=== PATIENT | male | born 1945 | race Caucasian/White ===

== ENCOUNTER 2017-02-23 08:20 | Inpatient (IN) | payer OTHER ==
[~2017-02-23] VITALS: Ht 167.6 cm; Wt 81.6 kg
--- NOTE | 2017-02-23 08:32 | ED CARDIAC/CP/PALPITATIONS ---
History of Present Illness General Chief Complaint: General Adult Stated Complaint: RAPID HR Source: patient, family Exam Limitations: no limitations Vital Signs & Intake/Output Vital Signs & Intake/Output ED Intake and Output 02/25 0000 02/24 1200 Intake Total 1200 700 Output Total 600 800 Balance 600 -100 Intake, IV 800 600 Intake, Oral 400 100 Output, Urine 600 800 Allergies Coded Allergies: NO KNOWN ALLERGIES (04/23/12) Reconcile Medications Apixaban (Eliquis) 5 MG TABLET 1 TAB PO BID BLOOD THINNER (Reported) Diltiazem HCl (Diltiazem 24HR ER) 120 MG CAP.ER.24H 1 CAP PO DAILY HEART ( Reported) Gabapentin 300 MG CAPSULE 1 CAP PO BID PAIN (Reported) Gabapentin 300 MG CAPSULE 2 CAP PO QPM PAIN (Reported) Glipizide (Glipizide ER) 10 MG TAB.ER.24 1 TAB PO DAILY DIABETES (Reported) Metoprolol Succinate 50 MG TAB.ER.24H 1 TAB PO DAILY HEART (Reported) Pioglitazone HCl 30 MG TABLET 1 TAB PO DAILY DIABETES (Reported) Pravastatin Sodium 80 MG TABLET 1 TAB PO DAILY CHOLESTEROL (Reported) Triage Nurses Notes Reviewed? yes Onset: Abrupt Duration: minute(s): (FEW) Timing: single episode today Associated Symptoms: MILD DIZZINESS PER PATIENT HPI: This is a 71-year-old male with history of A. fib diagnosed in December 2016 on Cardizem and ELOQUIS who presents to us from our GI suite for chief complaint of being found in rapid A. fib. He was nothing by mouth for a colonoscopy and endoscopy screening this morning by Dr. Cesar Lofton. He did not take any of his medications this morning. He stopped ELOQUIS on Sunday. Patient found to be tachycardic and was determined to be in A. fib by the GI suite. He was brought here for evaluation. Patient denies any chest pain shortness of breath. He did feel a little bit lightheaded and dizzy at home. He is status post colon cleanse for the colonoscopy this morning. Patient follows up with Dr. Minor Hargrove out of [place] family dinner service specialist. Patient with history of previous ablation for SVT in the past. Patient found to be sinus tachycardia on the monitor. Patient has history of hep C and has a relatively new diagnosis of liver CA which they are in the process of evaluating. Past History Travel History Traveled to [place] past 21 day No Medical History Any Pertinent Medical History? see below for history Neurological: NONE EENT: NONE Cardiovascular: AFIB, hypertension, hyperlipidemia, SVT Respiratory: obstructive sleep apnea Gastrointestinal: NONE Hepatic: hepatitis C Renal: benign prost hyperplasia Musculoskeletal: osteoarthritis Psychiatric: NONE Endocrine: diabetes Blood Disorders: HEMOCHROMATOSIS Cancer(s): liver cancer Surgical History Surgical History: non-contributory Psychosocial History What is your primary language Citizen Of [place] Tobacco Use: Never used ETOH Use: denies use Illicit Drug Use: denies illicit drug use Family History Hx Contributory? No Review of Systems Review of Systems Constitutional: Denies: chills, fever, malaise, weakness. EENTM: Reports: no symptoms. Respiratory: Denies: cough, short of breath, sputum production. Cardiovascular: Denies: chest pain, edema, palpitations, peripheral edema, syncope. GI: Reports: no symptoms. Genitourinary: Reports: no symptoms. Musculoskeletal: Reports: no symptoms. Skin: Reports: no symptoms. Neurological/Psychological: Reports: no symptoms. Hematologic/Endocrine: Denies: bruising, bleeding. Immunologic/Allergic: Denies: splenectomy. All Other Systems: Reviewed and Negative Physical Exam Physical Exam General Appearance: well developed/nourished, alert, awake Head: atraumatic, normal appearance Eyes: Bilateral: normal appearance, PERRL, EOMI. Ears, Nose, Throat: normal pharynx, hearing grossly normal Neck: normal inspection, supple, full range of motion Respiratory: normal breath sounds, chest non-tender, no respiratory distress Cardiovascular: tachycardia Peripheral Pulses: 2+ radial (R), 2+ radial (L) Gastrointestinal: normal bowel sounds, soft, non-tender Back: normal inspection Extremities: normal inspection, normal capillary refill, normal range of motion, no edema Neurologic/Psych: no motor/sensory deficits, awake, alert, oriented x 3 Skin: intact, normal color, warm/dry Core Measures ACS in differential dx? No Severe Sepsis Present: No Septic Shock Present: No Progress Differential Diagnosis: atrial fibrillation, musculoskeletal pain, myocarditis, pericarditis, pulmonary embolism, unstable angina, V-fib/V-Tach, DEHYDRATION, SINUS TACHYCARDIA, Plan of Care: Orders Procedure Date/time Status Consistent Carbohydrate 1 02/23 L Active ED Holding Orders 02/24 940 Active Admit to inpatient 02/24 940 Active Vital Signs 02/24 940 Active Code Status 02/24 940 Active EKG 02/24 856 Active TROPONIN LEVEL 02/24 832 Complete COMPREHENSIVE METABOLIC PANEL 02/24 832 Complete CBC WITHOUT DIFFERENTIAL 02/24 832 Complete EKG 02/23 823 Active Current Medications Sig/Mariano Start time Last Medication Dose Stop Time Status Admin Calcium Gluconate 1 GM ONCE ONE 02/23 930 AC (Calcium Gluconate) 02/23 1029 Sodium Chloride 100 ML (Normal Saline 0.9%) Sodium Chloride 500 ML BOLUS ONE 02/23 845 AC 02/23 (Normal Saline 0.9%) 02/23 0944 0839 Laboratory Tests 02/23/17 0838: Anion Gap 17 H, Estimated GFR 24 L, BUN/Creatinine Ratio 17.7, Glucose 242 H, Calcium 9.7, Total Bilirubin 0.8, AST 250 H, ALT 44, Alkaline Phosphatase 286 H, Troponin I 0.03, Total Protein 7.3, Albumin 4.0, Globulin 3.3, Albumin/ Globulin Ratio 1.2, CBC w Diff NO MAN DIFF REQ, RBC 4.20 L, MCV 89.8, MCH 29.6, RDW 14.5, MPV 6.8 L, Gran % 86.9 H, Lymphocytes % 6.4 L, Monocytes % 6.5, Eosinophils % 0, Basophils % 0.2, Absolute Granulocytes 12.1 H, Absolute Lymphocytes 0.9 L, Absolute Monocytes 0.9 H, Absolute Eosinophils 0, Absolute Basophils 0, PUBS MCHC 33.0 EKG, TELE MONITOR. PATIETN IS TACHYCARDIC, SINUS. IV LOPRESSOR, IV FLUIDS ORDERED. HEART RATE IN 110'S. IV CARDIZEM ORDERED, REPEAT EKG ORDERED, NSR IN 80'S. D/W DR EVERETT (PARTNER OF MINOR [facility]) WHO FEELS PATIETN DOES NOT REQUIRE CARDIOLOGY INPUT. ADMITTED TO HOSPITALIST SERVICE ON TELE FOR HYPERKALEMIA. CALCIUM, INSULIN, GLUCOSE ORDERED. KAYEXELATE PER DISCRETION OF HOUSESTAFF. PATIENT HAS BEEN NPO AFTER GOLYTELY YESTERDAY. WILL REQUIRE CLOSE MONITORING WITH I/O, ELECTROLYTES. (LIZZETH POLK,JING) Initial ED EKG: SINUS TACHYCARDIA Prior EKG: changed (NSR @ 82 BPM) Rhythm Strip: sinus tachycardia Departure Departure Time of Disposition: 939 Disposition: STILL A PATIENT Condition: Stable Clinical Impression Primary Impression: Hyperkalemia Secondary Impressions: MALCOLM (acute kidney injury), Sinus tachycardia Referrals: MASON POLK,AMY Ramires (PCP/Family) Departure Forms: Customer Survey General Discharge Information Admission Note Spoke With: BRIGIDO BENITEZ MD Documentation of Exam: Documentation of any treatments & extenuating circumstances including Concerns Regarding Discharge (functional status, medication knowledge or non-compliance, living conditions, etc.) that warrant an admission rather than observation: [ TELE MONITOR, TREATMENT OF HYPERKALEMIA, MONITOR I/O, REPEAT ELECTROLYTES, POSSIBLE COLONOSCOPY/ENDOSCOPY WHEN STABLE] Critical Care Note Critical Care Note Critical Care Time: 30-74 min ED Attending Observation Initial Observation Note: I have seen and personally examined KALYAN NORIEGA SR on 02/23/17 at 0926. I agree with the current emergency department documentation. The disposition (admission or discharge) is uncertain at this time, he needs a period of observation for the following reason(s): The ED Nurse caring for this patient has been personally informed as to what the patient is being observed for.
--- NOTE | 2017-02-23 08:32 | NUR ---
71 YEAR OLD MALE TO ER FROM THE GI SUITE FOR QUESTION RAPID AFIB. PT WAS TO HAVE COLONOSCOPY AND ENDOSCOPY THIS AM AND WHEN HE WAS PLACED ON MONITOR PT WAS NOTED WITH FAST HEART RATE. EKG OBTAINED ON ARRIVAL TO ER AND NOTED WITH SINUS TACH HR 130'S. PT DENIES SOB, O2 SAT 97 % ON 2L VIA NC / DENIES CP. PT HAS HISTORY OF AFIB AND TAKES ELIQUIST. DR MOREAU AT BEDSIDE AND PT TO GET IV FLUIDS AND IV METOPROL PER ORDER .
--- NOTE | 2017-02-23 08:40 | NUR ---
PT MEDICATED WITH IV LOPRESSOR PER ORDER AT THIS TIME HR DOWN TO 115 AFTER LOPRESSOR. MD AT BEDSIDE. FLUIDS REMAIN INFUISNG PER ORDER AT THIS TIME.
--- NOTE | 2017-02-23 08:42 | NUR ---
LABS DRAWN AND SENT BY THIS MST (BLUE,SST,LAV,JENSEN)
[2017-02-23] MEDS ORDERED: DILTIAZEM 24HR120 MG PO (08:46)
[2017-02-23] MEDS ORDERED: ELIQUIS5 M1 PO (08:46)
[2017-02-23] MEDS ORDERED: GABAPENTIN300 M2 PO ×2 (08:46→08:47)
[2017-02-23] MEDS ORDERED: METOPROLOL SUCC50 M2 PO (08:47)
[2017-02-23] MEDS ORDERED: GLIPIZIDE ER10 M1 PO (08:47)
[2017-02-23] MEDS ORDERED: PIOGLITAZONE HC30 M1 PO (08:48)
[2017-02-23] MEDS ORDERED: PRAVASTATIN SOD80 M2 PO (08:48)
--- NOTE | 2017-02-23 08:48 | NUR ---
PT MEDICATED WITH 10MG IV CARDIZEM PER ORDER AT THIS TIME HP 113 AT THIS TIME. PT REMAINS ASYMPTOMATIC.
[2017-02-23 08:49] LABS: ABSOLUTE BASOPHIL COUNT 0 /CUMM (0.0-0.2); ABSOLUTE EOSINOPHIL COUNT 0 /CUMM (0.0-0.7); ABSOLUTE GRANULOCYTE CT 12.1 /CUMM (1.4-6.5); ABSOLUTE LYMPH COUNT 0.9 /CUMM (1.2-3.4); ABSOLUTE MONOCYTE COUNT 0.9 /CUMM (0.10-0.60); BASOPHIL % 0.2 % (0.0-2.0); EOSINOPHIL % 0 % (0-5); HEMATOCRIT 37.7 % (42-52); MEAN CORPUSCULAR HGB 29.6 PG (27.0-31.0); MEAN CORPUSCULAR VOLUME 89.8 FL (80.0-94.0); MEAN PLATELET VOLUME 6.8 FL (7.4-10.4); PLATELET COUNT 352 /CUMM (130-400); RBC DISTRIBUTION WIDTH 14.5 % (11.5-14.5); WHITE BLOOD CELL COUNT 13.9 /CUMM (4.8-10.8)
[2017-02-23 09:06] LABS: GRANULOCYTE % 86.9 % (42.2-75.2)
--- NOTE | 2017-02-23 09:14 | NUR ---
IVF'S NS 500 ML BOLUS COMPLETED, BAN MONTIEL AT BEDSIDE FOR REPEAT EKG. PT CONTINUES TO DENY CHEST PAIN OR PALPATIONS, HEART RATE 81 AT THIS TIME.
--- NOTE | 2017-02-23 09:16 | NUR ---
CRITICAL TEST RESULTS [id number] KALYAN NORIEGA SR 71 M TESTS AND RESULTS: POTASSIUM: 6.3 Results received and read back by: JUNAID SORENSEN Results received date and time: 02/23/17 0916 The following provider was notified of the results, and read the results back: DR MOREAU Notified date and time: 02/23/17 at 0916
--- NOTE | 2017-02-23 09:51 | NUR ---
PT REMAINS AWAKE AND ALERT, NSR ON MONITOR HR 82 AT THIS TIME. FS 212 AND PT MEDICATD WITH DEXTROSE 50 % 25 GM IV/NOVOLIN R 10 UNITS IV AND CALCIUM GLUCONATE 1 GM INFUSING VIA PUMP AT 110 ML HR FOR K+ OF 6.3. PT OFFERS NO COMPLAINTS AT THIS TIME. SPOUSE AT BEDSIDE
--- NOTE | 2017-02-23 10:07 | History & Physical ---
WICHO CUEVAS 02/23/17 1003: General Information and HPI MD Statement: I have seen and personally examined KALYAN NORIEGA Sayda SR and documented this H&P. The patient is a 71 year old M who presented with a patient stated chief complaint of palpitations Source of Information: patient, family Exam Limitations: no limitations History of Present Illness: Patient is a 71-year-old admitted with past medical history significant for paroxysmal A. fib (diagnosed in December 2016) on Cardizem and elliquis, history of SVT status post ablation, history of hypertension and hyperlipidemia ,recently diagnosed liver mass, history of chronic hepatitis C, history of gallstones, diabetes mellitus presented to the ED from GI suite for the evaluation of rapid heart rate. Patient was nothing by mouth in the morning for colonoscopy and endoscopy screening by Dr. Lo Lofton today. He did not take any of his medications in the morning. Elliquis was stopped on Sunday. In the GI suite patient was found to be tachycardic heart rate was in 130s, the staff was concerned about rapid A. fib and was sent to the ED for further assessment. In the ED , he was found to be in sinus tach .Denied any chest discomfort , shortness of breath or any palpitations. Denies any nausea vomiting sweating. Reported some right upper quadrant discomfort, that's been there for a long time (probably due to underlying gallstones). Denied any weight loss. Denied any urinary symptoms. In the ED initial EKG revealed sinus tachycardia. Lab work revealed hyperkalemia potassium of 6.3 with elevated BUN and creatinine(2.6/1.6). Patient has been having this chronic right upper quadrant pain for a couple of years now, recently had a abdominal ultrasound done that revealed gallbladder stones. Patient has a history of long-standing chronic hepatitis C, never had any treatmment, patient was recently diagnosed with a hepatoma, and he has been worked up at [facility] for possible intervention. Today he was scheduled for endoscopy and colonoscopy as a part of preop workup before the liver surgery. Allergies/Medications Allergies: Coded Allergies: NO KNOWN ALLERGIES (04/23/12) Home Med list Apixaban (Eliquis) 5 MG TABLET 1 TAB PO BID BLOOD THINNER (Reported) Diltiazem HCl (Diltiazem 24HR ER) 120 MG CAP.ER.24H 1 CAP PO DAILY HEART ( Reported) Gabapentin 300 MG CAPSULE 1 CAP PO BID PAIN (Reported) Gabapentin 300 MG CAPSULE 2 CAP PO QPM PAIN (Reported) Glipizide (Glipizide ER) 10 MG TAB.ER.24 1 TAB PO DAILY DIABETES (Reported) Metoprolol Succinate 50 MG TAB.ER.24H 1 TAB PO DAILY HEART (Reported) Pioglitazone HCl 30 MG TABLET 1 TAB PO DAILY DIABETES (Reported) Pravastatin Sodium 80 MG TABLET 1 TAB PO DAILY CHOLESTEROL (Reported) Past History Travel History Traveled to [place] past 21 day No Medical History Neurological: NONE EENT: NONE Cardiovascular: AFIB, hypertension, hyperlipidemia, SVT Respiratory: obstructive sleep apnea Gastrointestinal: NONE Hepatic: hepatitis C Renal: benign prost hyperplasia Musculoskeletal: osteoarthritis Psychiatric: NONE Endocrine: diabetes Blood Disorders: HEMOCHROMATOSIS Cancer(s): liver cancer Surgical History Surgical History: spinal fusion Past Family/Social History Family History Relations & Conditions if any SISTER (Uterine cancer). FATHER ([place]). Psychosocial History ETOH Use: denies use Illicit Drug Use: denies illicit drug use Review of Systems Review of Systems Constitutional: Denies: chills, diaphoresis, fever, malaise. EENTM: Denies: blurred vision, double vision, eye pain, eye tearing. Cardiovascular: Denies: chest pain, edema, orthopena. Respiratory: Denies: cough, hemoptysis, orthopnea. GI: Denies: abdominal pain, bloating, constipation. Genitourinary: Denies: discharge, dysuria, frequency. Musculoskeletal: Denies: back pain, gout, joint pain. Skin: Denies: cysts, change in skin color, change in hair/nails. Neurological/Psychological: Denies: ataxia, cognitive dysfunction, confusion, dementia. Hematologic/Endocrine: Denies: bruising, bleeding, polyuria. Exam & Diagnostic Data Last 24 Hrs of Vital Signs/I&O Vital Signs Date Time Temp Pulse Resp B/P B/P Pulse O2 O2 Flow FiO2 Mean Ox Delivery Rate 02/23 0956 97.8 82 18 110/65 98 Nasal 2.0L Cannula 02/24 848 98.6 113 18 124/68 02/24 0848 98.6 113 18 124/68 98 Room Air 02/24 0839 97.3 132 18 120/84 02/24 0833 97 Nasal 2.0L Cannula 07/07 0823 97.3 132 18 120/84 97 Room Air Intake & Output 02/23 1600 07 0800 07/ 0000 Intake Total 500 Output Total Balance 500 Intake, IV 500 Intake, Oral 0 Patient 180 lb Weight Physical Exam General Appearance Alert, Oriented X3, Cooperative Skin No Rashes Skin Temp/Moisture Exam: Cool/Dry HEENT Atraumatic, PERRLA Cardiovascular Regular Rate, Normal S1, Normal S2 Lungs Clear to Auscultation, Normal Air Movement Abdomen Normal Bowel Sounds, Soft, No Tenderness Neurological Normal Gait, Normal Speech Assessment/Plan Assessment: Patient is a 71-year-old admitted with past medical history significant for paroxysmal A. fib (diagnosed in December 2016) on Cardizem and elliquis, history of SVT status post ablation, history of hypertension and hyperlipidemia ,recently diagnosed liver mass, history of chronic hepatitis C, history of gallstones, diabetes mellitus presented to the ED from GI suite for the evaluation of rapid heart rate. Pertinent vitals on admission temperature 97.3, sinus tach tach(132) , respiratory rate 18, blood pressure 120/84 on room air. Pertinent labs on admission: Leukocytosis 13.9 with granulocytosis, H&H stable at 12.4/37.7, hyperkalemia 6.3 , anion gap 17, elevated BUN and creatinine were 66/2.6 baseline creatinine of 1.6, elevated AST and ALP . Elevated TSH and total T4 pending free T4 levels: EKG done in the ED showed sinus tachycardia with a heart rate in 130s poor R- wave progression with left anterior fascicular block. Assessment and plan: 1. Hyperkalemia 2. Prerenal MALCOLM(probably due to dehydration) with borderline blood pressure 3. History of recently diagnosed paroxysmal atrial fibrillation 4. History of hypertension and hyperlipidemia 5. History of lower extremity edema 6. History of diabetes mellitus Plan 1. Hyperkalemia: * Admit the patient to a telemetry floor * Initial potassium in the ED 6.3 patient received one-time dose of insulin with dextrose and calcium gluconate will repeat potassium at around 2 PM. * I talked to Dr. Lofton , who mentioned that the hyperkalemia has been an issue in the past as well. * He mentioned that he will postpone endoscopy and colonoscopy today , due to AKl and hyperkalemia, restart the patient on diet, follow with as an outpt . 2. Prerenal MALCOLM(probably due to dehydration) with borderline blood pressure: * Continue with IV hydration with normal saline at the rate of 100 mL per our * Repeat BeP at 2 PM * Avoid any nephrotoxic agents. 3. History of recently diagnosed paroxysmal atrial fibrillation: * Restart it was, once creatinine improves * Restart home dose of Cardizem and metoprolol. 4. History of hypertension and hyperlipidemia: * Restart home dose of statin and metoprolol. 5. History of lower extremity edema * Continue to hold Lasix 6. History of diabetes mellitus * Hold oral hyperglycemics * start the patient on NovoLog sliding scale with Accu-Cheks * Carbohydrate consistent diet. 7. Chronic neuropathic pain * Creatinine clearances :21 will decrease her dose of gabapentin to 600 mg once daily(confirmed the dose from the pharmacy). Mild to moderate pain controlled with oxycodone DVT prophylaxis subcutaneous heparin Patient is full code As Ranked By This Provider Problem List: 1. MALCOLM (acute kidney injury) 2. Hyperkalemia 3. Sinus tachycardia Core Measures/Miscellaneous Acute Coronary Syndrome ACS Diagnosis: No Cerebrovascular Accident CVA/TIA Diagnosis: No Congestive Heart Failure CHF Diagnosis: No VTE (View Protocol) VTE Risk Factors: Acute medical illness, Age > 40 No [facility] VTE prophylaxis d/t: VTE low risk, No contraindications No VTE Pharm Prophylaxis d/t: No contraindications VTE Diagnosis: No VTE Type: NONE VTE Confirmed by (Test): NONE Sepsis (View Protocol) Severe Sepsis Present: No Septic Shock Septic Shock Present: No Miscellaneous Documentation Attending Case Discussed With: Dr. Meza Primary Care Physician: MASON POLK,AMY Ramires Patient sees these Specialists Luís Faria MD Level of Patient Care: Telemetry Resident Review Statement Resident Statement: examined this patient, discussed with purchasing intern CHRISTY MEZA MD 02/23/17 4751: Attending MD Review Statement Attending Statement Attending MD Statement: examined this patient, discuss w/resident/PA/FRUIT HARVEST MACHINE OPERATOR, agreed w/resident/RENETTA/FRUIT HARVEST MACHINE OPERATOR, reviewed EMR data (avail), amended to note Attending Assessment/Plan: The patient is a 71 yo male with h/o PAF (12/2016- on Eliquis/Cardizem), HTN, DM2 , HL, and chronic hepatitis C (not treated) and recent liver mass (?hepatoma) being evaluated at [facility] who was referred from Endoscopy Lab where he presented for EGD/Colonoscopy with Dr. Lofton today when he was noted to be tachycardic. He was sent to the [facility] ED for evaluation. Was found to have sinus tachycardia. Labs showed MALCOLM (baseline Cr 1.6 with admission Cr 2.7) and hyperkalemia (6.3). The patient denied any chest pain, palpitations. He had bowel prep for colonoscopy and also had continue his usual diuretic (furosemide) . Physical Exam: VS: T 97.3, P 132-113, R 18, BP 120/8, PO 98% RA HEENT: eyes- PERRLA, EOMI any-dry mucosa Neck: no JVD/bruits Chest: clear Cor: tachy, reg, nl S1, S2 w/o murm Abd: BS+, softly distended, non-tender Ext: no edema, pulses 2+ Labs/Tests- as above Impression/Plan: #Hyperkalemia- due to MALCOLM. Plan: Given Dextrose/Insulin in ED and IV hydration with NS. Will admit to telemetry and monitor K level closely. #MALCOLM/CKD- baseline Cr was 1/6 in early January here and now 2.7. Most likely secondary to volume depletion due to diuretics and loss of fluid related to bowel preparation for colonoscopy. Plan: Will hydrate and follow-up BEP. #PAF- EF was normal on prior ECHO. Patient has been on Eliquis and Cardizem. Plan: Hold Eliquis until Cr back to baseline. Continue Cardizem. #Hepatitis C/Liver Mass (?Hepatoma)- being evaluated at [facility] Plan:Elected to defer EGD/colonoscopy and complete [facility] workup after above MALCOLM resolved. #DM2-has been on Pioglizatone. Plan: Follow sugars and sliding scale insulin coverage.
--- NOTE | 2017-02-23 10:44 | NUR ---
CARDIOLOGY AT BEDSIDE AT THIS TIME
--- NOTE | 2017-02-23 11:02 | NUR ---
PT HAS BED ASSIGNMENT 189-2. RN NOTIFIED.
--- NOTE | 2017-02-23 11:15 | NUR ---
REPORT TO FLOOR AND TRANSPORT BOOKED AT THIS TIME
--- NOTE | 2017-02-23 11:18 | Cons- Cardiology ---
General Information and HPI Consulting Request Date of Consult: 02/23/17 Requested By: Dr. Grey (ER) Reason for Consult: Tachycardia, A. fib history Primary intelligence manager: Dr. Rain Source of Information: patient, family, old records History of Present Illness: This is a pleasant 71-year-old male with a past medical history of SVT status post ablation, diabetes, hepatitis was recently diagnosed liver mass, hypertension, and recently diagnosed new onset atrial fibrillation and may add [facility] at which time he was started on L course. At that time he was also noted to have acute kidney injury with hyperkalemia. He also tells me that his Lasix was recently increased by the oncology team at [facility]. He was here at [facility] today for elective colonoscopy but was noted to be tachycardic and was transferred to the emergency room. In the emergency room he was found to be in sinus tachycardia with evidence of acute kidney injury. He the actually feels quite well and denied any associated palpitations, chest pain, or dyspnea. Denies any recent bleeding episodes on Eliquis. Denies headache, slurring of speech, subjective fever, or focal weakness. He was holding his anticoagulation routinely prior to the elective procedure. Allergies/Medications Allergies: Coded Allergies: NO KNOWN ALLERGIES (04/23/12) Home Med List: Apixaban (Eliquis) 5 MG TABLET 1 TAB PO BID BLOOD THINNER (Reported) Diltiazem HCl (Diltiazem 24HR ER) 120 MG CAP.ER.24H 1 CAP PO DAILY HEART ( Reported) Gabapentin 300 MG CAPSULE 1 CAP PO BID PAIN (Reported) Gabapentin 300 MG CAPSULE 2 CAP PO QPM PAIN (Reported) Glipizide (Glipizide ER) 10 MG TAB.ER.24 1 TAB PO DAILY DIABETES (Reported) Metoprolol Succinate 50 MG TAB.ER.24H 1 TAB PO DAILY HEART (Reported) Pioglitazone HCl 30 MG TABLET 1 TAB PO DAILY DIABETES (Reported) Pravastatin Sodium 80 MG TABLET 1 TAB PO DAILY CHOLESTEROL (Reported) Current Medications: Current Medications Sig/Mariano Start time Last Medication Dose Route Stop Time Status Admin Acetaminophen 650 MG Q6P PRN 02/23 1000 AC PO Calcium Gluconate 0 .STK-MED ONE 02/23 0943 DC IV Calcium Gluconate 1 GM ONCE ONE 02/23 0930 DC 02/23 Sodium Chloride 100 ML IV 02/23 1029 0950 Dextrose 25 GM ONCE ONE 02/23 930 DC 02/23 IV 02/23 0931 0950 Diltiazem HCl 10 MG ONCE ONE 02/23 900 DC 02/23 IV PUSH 02/23 0901 0848 Diltiazem HCl 0 .STK-MED ONE 02/23 0850 DC .ROUTE Insulin Human Regular 10 UNITS ONCE ONE 02/23 930 DC 02/23 IV 02/23 0931 0950 Metoprolol Tartrate 5 MG ONCE ONE 02/24 0845 DC 02/23 IV 02/23 0846 0839 Metoprolol Tartrate 0 .STK-MED ONE 02/23 0840 DC IV Oxycodone HCl 5 MG Q8P PRN 02/23 1000 AC PO Oxycodone HCl 10 MG Q6P PRN 02/23 1000 AC PO Sodium Chloride 500 ML BOLUS ONE 02/23 845 DC 02/23 IV 02/23 0944 0839 Review of Systems Review of Systems: Review of systems as per HPI. The remainder of a 10 point review of systems was reviewed and was otherwise negative. Past History Travel History Traveled to [place] past 21 day No Medical History Neurological: NONE EENT: NONE Cardiovascular: AFIB, hypertension, hyperlipidemia, SVT Respiratory: obstructive sleep apnea Gastrointestinal: NONE Hepatic: hepatitis C Renal: benign prost hyperplasia Musculoskeletal: osteoarthritis Psychiatric: NONE Endocrine: diabetes Blood Disorders: HEMOCHROMATOSIS Cancer(s): liver cancer Surgical History Surgical History: spinal fusion Psychosocial History ETOH Use: denies use Illicit Drug Use: denies illicit drug use Exam & Diagnostic Data Vital Signs and I&O Vital Signs Date Time Temp Pulse Resp B/P B/P Pulse O2 O2 Flow FiO2 Mean Ox Delivery Rate 02/24 956 97.8 82 18 110/65 98 Nasal 2.0L Cannula 02/24 848 98.6 113 18 124/68 02/24 848 98.6 113 18 124/68 98 Room Air 02/23 839 97.3 132 18 120/84 02/23 833 97 Nasal 2.0L Cannula 02/23 823 97.3 132 18 120/84 97 Room Air Intake & Output 02/23 1600 02/23 0800 07/ 0000 / 1600 02/22 0800 02/22 0000 Intake Total 610 Output Total Balance 610 Intake, IV 610 Intake, Oral 0 Patient 180 lb Weight Physical Exam: General: no apparent distress. Alert. Eyes: No obvious scleral icterus. HEENT: No jugular venous distention or abnormal jugular venous pulsations. Cardiovascular: Normal intensity S1/S2. Regular.. Respiratory: Lungs clear to auscultation bilaterally. Abdomen: Soft, nontender with no guarding or rebound tenderness. Musculoskeletal: No clubbing or cyanosis noted, trace edema Skin: Warm Neurologic: No gross focal deficits noted. Labs/Jonathon Results: Laboratory Tests 02/23 838 Chemistry Sodium (137 - 145 mmol/L) 137 Potassium (3.5 - 5.1 mmol/L) 6.3 *H Chloride (98 - 107 mmol/L) 100 Carbon Dioxide (22 - 30 mmol/L) 19 L Anion Gap (5 - 16) 17 H BUN (9 - 20 mg/dL) 46 H Creatinine (0.7 - 1.2 mg/dL) 2.6 H Estimated GFR (>60 ml/min) 24 L BUN/Creatinine Ratio (7 - 25 %) 17.7 Glucose (65 - 99 mg/dL) 242 H Calcium (8.4 - 10.2 mg/dL) 9.7 Total Bilirubin (0.2 - 1.3 mg/dL) 0.8 AST (17 - 59 U/L) 250 H ALT (21 - 72 U/L) 44 Alkaline Phosphatase (< 127 U/L) 286 H Troponin I (<0.11 ng/ml) 0.03 Total Protein (6.3 - 8.2 g/dL) 7.3 Albumin (3.5 - 5.0 g/dL) 4.0 Globulin (1.9 - 4.2 gm/dL) 3.3 Albumin/Globulin Ratio (1.1 - 2.2 %) 1.2 TSH (0.270 - 4.200 uIU/mL) 4.960 H Thyroxine (T4) (4.5 - 10.9 ug/dL) 13.7 H Hematology CBC w Diff NO MAN DIFF REQ WBC (4.8 - 10.8 /CUMM) 13.9 H RBC (4.70 - 6.10 /CUMM) 4.20 L Hgb (14.0 - 18.0 G/DL) 12.4 L Hct (42 - 52 %) 37.7 L MCV (80.0 - 94.0 FL) 89.8 MCH (27.0 - 31.0 PG) 29.6 RDW (11.5 - 14.5 %) 14.5 Plt Count (130 - 400 /CUMM) 352 MPV (7.4 - 10.4 FL) 6.8 L Gran % (42.2 - 75.2 %) 86.9 H Lymphocytes % (20.5 - 51.1 %) 6.4 L Monocytes % (1.7 - 9.3 %) 6.5 Eosinophils % (0 - 5 %) 0 Basophils % (0.0 - 2.0 %) 0.2 Absolute Granulocytes (1.4 - 6.5 /CUMM) 12.1 H Absolute Lymphocytes (1.2 - 3.4 /CUMM) 0.9 L Absolute Monocytes (0.10 - 0.60 /CUMM) 0.9 H Absolute Eosinophils (0.0 - 0.7 /CUMM) 0 Absolute Basophils (0.0 - 0.2 /CUMM) 0 PUBS MCHC (33.0 - 37.0 G/DL) 33.0 Diagnostic Data EKG Results Tracing was personally reviewed and shows sinus tachycardia at 133 bpm with left axis deviation Subsequent tracing was personally reviewed and shows sinus rhythm at 80 bpm with left axis deviation Other Results Echocardiogram at [facility] December 2016 showed normal ejection fraction Assessment/Plan Assessment/Plan 1. Acute renal insufficiency with hyperkalemia likely prerenal in etiology 2. History of recently diagnosed paroxysmal atrial fibrillation; currently in sinus rhythm; Eliquis recently held for routine colonoscopy 3. Sinus tachycardia, now improved 4. Liver mass currently undergoing outpatient evaluation at [facility] 5. History of SVT status post prior ablation 6. Diabetes mellitus 7. Hypertension The patient was here for routine colonoscopy today but the procedure was canceled by anesthesiology due to tachycardia. Initial ECG revealed sinus tachycardia with subsequent improvement to sinus rhythm. No obvious evidence of recurrent atrial fibrillation at this time. Would resume his outpatient Eliquis since the procedure has been canceled. Suspect the acute renal insufficiency with hyperkalemia is prerenal in nature and as he has no history of congestive heart failure with known normal ejection fraction recommend IV fluids. His outpatient AV nasir jose should be continued. Geronimo Faria MD [facility] Consult Acknowledgment - Thank you for your consult request.
[2017-02-23 11:52] VITALS: BP 112/60
[2017-02-23 15:03] VITALS: BP 114/60
--- NOTE | 2017-02-23 15:28 | NUR ---
1420 - CALLED BY PIT INSPECTOR, NOTIFIED OF PATIENTS HR OF 170 AT 1228. ANSON CONTEH AWARE. HR AT THIS TIME IS 103 ON THE MONITOR.
--- NOTE | 2017-02-23 17:06 | Admission Certification ---
Admission Certification Certification Statement - As attending physician, I certify that at the time of - admission, based on clinical presentation, severity of - symptoms, need for further diagnostic testing and - therapeutic interventions, and risk of adverse outcomes - without in-hospital treatment, in my clinical assessment, - this patient requires an acute hospital stay for a minimum - of two nights or longer. I have also considered psychsocial - factors such as support system, advanced age, financial - issues, cognitive issues, and failed out-patient treatments, - past re-admission history, safety of patient, and lack of - compliance as applicable. Specific rationale supporting this admission is: The patient presents with hyperkalemia (6.3) and MALCOLM (most likely due to volume depletion). Needs telemetry admission for monitoring due to increased K, aggressive IV hydration, IV glucose/insulin (given in ED).
[2017-02-23 22:21] VITALS: BP 122/58
[2017-02-24 07:50] VITALS: BP 120/60
[2017-02-24 08:39] LABS: ABSOLUTE BASOPHIL COUNT 0 /CUMM (0.0-0.2); ABSOLUTE EOSINOPHIL COUNT 0.1 /CUMM (0.0-0.7); ABSOLUTE GRANULOCYTE CT 7.8 /CUMM (1.4-6.5); ABSOLUTE LYMPH COUNT 1.1 /CUMM (1.2-3.4); ABSOLUTE MONOCYTE COUNT 0.8 /CUMM (0.10-0.60); BASOPHIL % 0.2 % (0.0-2.0); EOSINOPHIL % 1.2 % (0-5); GRANULOCYTE % 79.2 % (42.2-75.2); MEAN CORPUSCULAR HGB CONC 32.9 G/DL (33.0-37.0); MEAN CORPUSCULAR VOLUME 91.1 FL (80.0-94.0); MEAN PLATELET VOLUME 6.9 FL (7.4-10.4); PLATELET COUNT 278 /CUMM (130-400); RBC DISTRIBUTION WIDTH 14.6 % (11.5-14.5); RED BLOOD CELL CT 3.49 /CUMM (4.70-6.10); WHITE BLOOD CELL COUNT 9.8 /CUMM (4.8-10.8)
[2017-02-24 11:10] VITALS: BP 124/64
[2017-02-24 11:16] LABS: HEMATOCRIT 31.8 % (42-52)
--- NOTE | 2017-02-24 11:22 | PN- Housestaff ---
NISHAERLINANGELINA 02/24/17 1128: Attending MD Review Statement Attending Statement Attending MD Statement: examined this patient, discuss w/resident/PA/PARALEGAL SECRETARY, agreed w/resident/PA/PARALEGAL SECRETARY, discussed with family, reviewed EMR data (avail), discussed with nursing, discussed with case mgmt, reviewed images, amended to note Attending Assessment/Plan: Impression/Plan #Hyperkalemia- due to MALCOLM improved #MALCOLM/CKD-s/p hydration and follow-up BEP. #PAF- EF was normal on prior ECHO. Patient has been on Eliquis and Cardizem. restart home meds #Hepatitis C/Liver Mass (?Hepatoma)- being evaluated at [place] Plan:Elected to defer EGD/colonoscopy and complete [place] workup after above MALCOLM resolved. #DM2-stable resume home meds. Patient condition improved after hydration and he is stable to discharge. f/o o/ p PCP in 3-[address] Lofton for EGD/colon in future.
--- NOTE | 2017-02-24 11:30 | Patient Discharge Instructions ---
Discharge Instructions General Discharge Information You were seen/treated for: sinus tachycardia hyperkalemia' juliana Special Instructions: 1. please f/u with your pcp within 1 week of discharge. 2.please f/u with your forging die sinker within 1 week of discharge. 3. please f/u with Dr Lofton regarding rescheduling the endoscopy/colonoscopy Diet Recommended Diet: Heart Healthy Activity Full Activity/No Limits: Yes (as tolerated) Acute Coronary Syndrome Inclusion Criteria At DC or during hospital stay patient has or had the following: ACS DIAGNOSIS No Discharge Core Measures Meds if any: Prescribed or Continued at Discharge Meds if any: NOT Prescribed or Continued at Discharge Congestive Heart Failure Inclusion Criteria At DC or during hospital stay patient has or had the following: CHF DIAGNOSIS No Discharge Core Measures Meds if any: Prescribed or Continued at Discharge Meds if any: NOT Prescribed or Continued at Discharge Cerebrovascular accident Inclusion Criteria At DC or during hospital stay patient has or had the following: CVA/TIA Diagnosis No Discharge Core Measures Meds if any: Prescribed or Continued at Discharge Meds if any: NOT Prescribed or Continued at Discharge Venous thromboembolism Inclusion Criteria VTE Diagnosis No VTE Type NONE VTE Confirmed by (Test) NONE Discharge Core Measures - Per Current guidelines, there needs to be overlap - treatment for the first 5 days of Warfarin therapy. - If discharged on Warfarin prior to 5 days of - overlap therapy, the patient will need to be - assessed for post discharge needs including - *Post discharge parental anticoagulation - *Warfarin and/or parental anticoagulation education - *Follow up date to check INR post discharge At least 5 days overlap therapy as Inpatient No Meds if any: Prescribed or Continued at Discharge Note: Overlap Therapy is Warfarin and Anticoagulant Meds if any: NOT Prescribed or Continued at Discharge
--- NOTE | 2017-02-24 17:58 | PN- Housestaff ---
Subjective Follow-up For: MALCOLM PAROXYSMAL AFIB HYPERKLEMIA Review of Systems Constitutional: Denies: no symptoms. Objective Last 24 Hrs of Vital Signs/I&O Vital Signs Date Time Temp Pulse Resp B/P B/P Pulse O2 O2 Flow FiO2 Mean Ox Delivery Rate 02/24 1110 79 124/64 02/24 0750 99.5 103 18 120/60 92 Room Air 02/23 2221 98.7 86 18 122/58 93 Room Air Intake & Output 02/24 1600 02/24 0800 02/24 0000 Intake Total 1200 700 350 Output Total 600 800 300 Balance 600 -100 50 Intake, IV 800 600 300 Intake, Oral 400 100 50 Output, Urine 600 800 300 Physical Exam General Appearance: Alert, Oriented X3, Cooperative, No Acute Distress Assessment/Plan Assessment: Assessment& plan Patient is a 71-year-old admitted with past medical history significant for paroxysmal A. fib (diagnosed in December 2016) on Cardizem and elliquis, history of SVT status post ablation, history of hypertension and hyperlipidemia ,recently diagnosed liver mass, history of chronic hepatitis C, history of gallstones, diabetes mellitus presented to the ED from GI suite for the evaluation of rapid heart rate.EKG done in the ED showed sinus tachycardia with a heart rate in 130s poor R-wave progression with left anterior fascicular block. The patient was here for routine colonoscopy today but the procedure was canceled by anesthesiology due to tachycardia. Initial ECG revealed sinus tachycardia with subsequent improvement to sinus rhythm. # Hyperkalemia: -resolved K today 4.8 -monitor on telemetry floor -restart the patient on diet, follow with as an outpt . # Prerenal MALCOLM(probably due to dehydration) with borderline blood pressure: improved renal f , cr today is 1.8<---2.4 -Continue with IV hydration with normal saline at the rate of 100 mL per our -Avoid any nephrotoxic agents. # History of recently diagnosed paroxysmal atrial fibrillation: Restart home dose of Cardizem and metoprolol. #Hepatitis C/Liver Mass (?Hepatoma)- being evaluated at [place] Plan:Elected to defer EGD/colonoscopy and complete [place] workup after above MALCOLM resolv #History of hypertension and hyperlipidemia: * Restart home dose of statin and metoprolol. # History of lower extremity edema * Continue to hold Lasix # History of diabetes mellitus * Hold oral hyperglycemics * start the patient on NovoLog sliding scale with Accu-Cheks * Carbohydrate consistent diet. # Chronic neuropathic pain * Creatinine clearances 37 will decrease her dose of gabapentin to 600 mg once daily(confirmed the dose from the pharmacy). Mild to moderate pain controlled with oxycodone DVT prophylaxis subcutaneous heparin Patient is full code today the patient is stable for discharge f/o o/p PCP in 3-[address] Lofton for EGD/colon in future. . Problem List: 1. Hyperkalemia 2. MALCOLM (acute kidney injury) 3. Paroxysmal a-fib 4. HCV (hepatitis C virus) 5. HLD (hyperlipidemia) 6. HTN (hypertension) 7. Diabetes Pain Ratin Pain Location: n/a Pain Goal: Remain pain free Pain Plan: none Tomorrow's Labs & Rationales: n/a
== END 2017-02-24 15:00 | DRG 683 ==
LOC: ERH 08:20 → 1NO 09:40 → ERHI 09:40 → ENRESERV 10:42 → ENTRNSPT 11:12 → EDTRNSPTSTS 11:27 → 1NO 11:30 → CMPTRNSPT 11:49 → ENPENDDIS 02-24 12:00 → 1NO 02-24 15:00
PROVIDERS: Emergency Medicine; Student in an Organized Health Care Education/Training Program; ADMIT Internal Medicine
DX: N17.9 Acute kidney failure, unspecified (principal); C22.0 Liver cell carcinoma; E87.5 Hyperkalemia; I48.0 Paroxysmal atrial fibrillation; E11.40 Type 2 diabetes mellitus with diabetic neuropathy, unspecified; E86.0 Dehydration; I12.9 Hypertensive chronic kidney disease with stage 1 through stage 4 chronic kidney disease, or unspecified chronic kidney disease; B18.2 Chronic viral hepatitis C; E78.5 Hyperlipidemia, unspecified; R00.0 Tachycardia, unspecified; Z79.01 Long term (current) use of anticoagulants; K80.20 Calculus of gallbladder without cholecystitis without obstruction; G47.33 Obstructive sleep apnea (adult) (pediatric); N40.0 Benign prostatic hyperplasia without lower urinary tract symptoms; M19.90 Unspecified osteoarthritis, unspecified site; Z98.1 Arthrodesis status; R60.9 Edema, unspecified; Z79.84 Long term (current) use of oral hypoglycemic drugs; N18.9 Chronic kidney disease, unspecified; E83.119 Hemochromatosis, unspecified
CPT/HCPCS: 1NSP; 36415; 82436; 87040; 93005; 93010; 96361; 96374; 96375; 99291; J0610; J1644; J7040